=== PATIENT | female | born 1990 | race Caucasian/White ===

== ENCOUNTER 2017-04-15 21:30 | Emergency (ER) | payer MEDICAID, OTHER ==
[~2017-04-15] VITALS: Ht 165.1 cm; Wt 61.2 kg
[2017-04-15 21:35] VITALS: BP 123/82
== END 2017-04-15 23:52 | disposition left against medical advice (07) ==
LOC: EDBD 21:30 → ER 21:48
DX: F41.9 Anxiety disorder, unspecified (principal); Z53.21 Procedure and treatment not carried out due to patient leaving prior to being seen by health care provider
CPT/HCPCS: 93005